=== PATIENT | female | born 1960 | race Caucasian/White ===

== ENCOUNTER 2017-11-15 12:10 | Observation (INO) | payer OTHER ==
[~2017-11-15] VITALS: Ht 165.1 cm; Wt 113.6 kg
--- NOTE | ~2017-11-15 | ST ---
PATIENT:VIVEK URRUTIA MEDICAL RECORD: [id number] SEX: F LOCATION:[facility] D212 ORDER #: ADMISSION DATE: 11/15/17 AGE OF PATIENT: 57 REFERRING PHYSICIAN: INTERPRETING PHYSICIAN: OLIVA MORRIS MD DATE OF SERVICE: 11/16/2017 PROCEDURE: Nuclear stress test. PROCEDURE IN DETAIL: The patient was brought into the nuclear stress test room. The patient was placed in supine position in the scanning table. The patient then had a standard dose of Lexiscan administered. The patient's hemodynamic status was normal before, during, and after. She did have a slight heart rate increase as predicted. She had mild sensation of fullness, but no distinct chest discomfort. She had no ST or T-wave changes consistent with ischemia and the procedure was terminated with completion. The patient's nuclear medication was administered at rest and at stress. At rest, 11.9 mCi of sestamibi was injected at 1245 hours and at stress 32.1 mCi of sestamibi was injected at 1358 hours. The Gated imaging showed good quality imaging with an ejection fraction of 78%. The SPECT imaging showed no evidence of ischemia or infarction. In conclusion, the patient underwent a standard Lexiscan nuclear stress test, showed no evidence of infarction or ischemia. It is a normal stress test with normal ejection fraction. TRANSINT:[id number] Voice Confirmation ID: [id number] DOCUMENT ID: [id number] 11/20/2017 Edited to correct date of service, dmm. OLIVA MORRIS MD at 1426 CC: [id number] DICTATION DATE: 11/17/17 0707 FRAME AND SCRAP CRUSHER: 11/17/17 1152 DIS IN 11/17/17 [address] [place] [address]
--- NOTE | ~2017-11-15 | EC ---
PATIENT:VIVEK URRUTIA DATE OF SERVICE: 11/15/17 SEX: F MEDICAL RECORD: [id number] DATE OF : 62 LOCATION:D.M2 D.212 AGE OF PATIENT: 57 ADMISSION DATE: 11/15/17 REFERRING PHYSICIAN: INTERPRETING PHYSICIAN: OLIVA MORRIS MD ECHOCARDIOGRAM REPORT ECHO CHARGES 4 ECHO COMPLETE Date: CLINICAL DIAGNOSIS: CP ECHOCARDIOGRAPHIC MEASUREMENTS (adult normal given) AC root (d.<3.7cm) 3.3 cm LV Septum d (<1.2 cm> 1.4 cm Valve Excursion 2.1 cm LV Septum (systole) 2.2 cm Left Atria (s.<4.0cm> 3.5 cm LVPW d(<1.2cm) 1.4 cm RV (d.<2.3cm) 2.6 cm LVPW (sytole) 2.0 cm LV diastole(<5.6CM) 4.4 cm MV E-F(>70mm/sec) cm LV systole 2.1 cm LVOT Diameter 1.8 cm MV exc.(>10mm) cm Est.ejection fraction (50-75%) % DOPPLER: LVIT cm/sec A 81.0 cm/sec E 62.0 cm/sec LA cm/sec RVSP 42.0 mmHg LVOT 121 cm/sec AOP1/2T m/s Asc. Ao 174 cm/sec RVOT 76.0 cm/sec RA cm/sec PA 124 cm/sec AV Gradient Peak 12.1 mmHg AV Mean 6.9 mmHg AV Area 2.0 cm MV Gradient Peak 3.5 mmHg MV Mean 1.4 mmHg MV Area cm COMMENTS: Hadoop Java Developer: Susy ZAMORA [place] Kitchen Designer: 4 Dr. Morris TAPE# PACS Pericardial Effusion N DATE OF SERVICE: 11/16/2017 PROCEDURE: Transthoracic echocardiogram. FINDINGS: 1. Left ventricle shows mild to moderate concentric left ventricular hypertrophy. Overall, ejection fraction is 65%. Inflow characteristics consistent with diastolic dysfunction. 2. The left atrium is normal size, normal function. 3. The aortic valve is normal. ECHOCARDIOGRAM REPORT [id number] VIVEK URRUTIA 4. The mitral valve is normal. 5. The tricuspid valve has trace tricuspid regurgitation. RVSP is between 35 and 40 mmHg, mildly elevated. 6. The pericardium is normal. 7. The pulmonic valve is normal. 8. The right atrium is normal. 9. The right ventricle is normal. CONCLUSIONS: The patient has evidence of mild hypertensive heart disease, otherwise normal. TRANSINT:[id number] Voice Confirmation ID: [id number] DOCUMENT ID: [id number] 11/20/2017 Edited to correct date of service, dmm. OLIVA MORRIS MD at 1426 CC: [id number] DICTATION DATE: 11/17/17 0715 CEMENT GRINDING MILL OPERATOR: 11/17/17 1039 DIS IN 11/17/17 [facility] [address] [place] [address]
[2017-11-15 12:48] LABS: BASOPHILS 0.6 % (0-2); EOSINOPHILS 1.2 % (0-7); HEMATOCRIT 45.6 % (36.0-48.0); HEMOGLOBIN 15.4 g/dL (12-16); IMMATURE GRANULOCYTES 0.3 % (0-5); LYMPHOCYTES 12.8 % (15-50); MCH 34.2 pg (26.0-34.0); MCHC 33.8 g/dL (31.0-37.0); MCV 101.3 fL (80.0-100.0); MEAN PLATELET VOLUME 10.2 fL (7.4-10.4); MONOCYTES 4.7 % (2-11); NEUTROPHILS 80.4 % (40-80); PLATELET COUNT 267 10x3/uL (130-400); RDW 12.7 % (11.5-14.5); WBC 10.8 10x3/uL (4.8-10.8)
[2017-11-15 13:01] LABS: ALKALINE PHOSPHATASE 108 U/L (46-116); ALT (SGPT) 158 U/L (10-68); BILIRUBIN - TOTAL 1.49 mg/dL (0.2-1.3); CALC OSMOLALITY 272 mosm/kg (275-300); CALCIUM 9.9 mg/dL (8.5-10.1); CARBON DIOXIDE 23.6 mmol/L (21.0-32.0); CHLORIDE - SERUM 98 mmol/L (98-107); CREATININE - SERUM 1.8 mg/dL (0.6-1.3); GLUCOSE 110 mg/dL (74-106); POTASSIUM - SERUM 3.7 mmol/L (3.5-5.1); PROTEIN - SERUM 8.3 g/dL (6.4-8.2); SODIUM 134 mmol/L (136-145); UREA NITROGEN 24 mg/dL (7-18); eGFR NON AFRICAN AMERICAN 31 mL/min (90-120)
[2017-11-15 13:08] LABS: CREATINE KINASE 75 UL (21-215); TROPONIN-I < 0.017 ng/mL (0.000-0.060)
[2017-11-15 14:20] LABS: LIPASE 199 U/L (73-393); PRO BNP 33 pg/mL (0-125)
[2017-11-15 14:36] LABS: APPEARANCE CLEAR (CLEAR); BILIRUBIN NEGATIVE (NEGATIVE); COLOR YELLOW (YELLOW); GLUCOSE NEGATIVE (NEGATIVE); KETONE NEGATIVE (NEGATIVE); NITRITE NEGATIVE (NEGATIVE); PROTEIN NEGATIVE (NEGATIVE); UROBILINOGEN NORMAL (NORMAL)
[2017-11-15 14:39] LABS: BACTERIA FEW /hpf (NONE SEEN); EPITHELIAL CELLS 0-5 /hpf (0-5); WHITE CELLS - URINE 0-5 /hpf (0-5)
[2017-11-15] MEDS ORDERED: BENICAR HCT 20-1 TA1 PO (21:27)
[2017-11-15 22:33] VITALS: BP 120/68; BMI 41.6
[2017-11-16 00:30] VITALS: BP 119/51
[2017-11-16 04:30] VITALS: BP 115/70; BP 141/71
[2017-11-16 09:21] VITALS: BP 105/61
[2017-11-16 10:59] VITALS: Ht 165.1 cm; Wt 113.6 kg
[2017-11-16 13:50] VITALS: BP 130/87
[2017-11-16 16:59] VITALS: BP 131/84
[2017-11-16 18:42] LABS: BASOPHILS 0.4 % (0-2); EOSINOPHILS 2.9 % (0-7); HEMATOCRIT 39.9 % (36.0-48.0); HEMOGLOBIN 13.4 g/dL (12-16); IMMATURE GRANULOCYTES 0.2 % (0-5); LYMPHOCYTES 39.5 % (15-50); MCHC 33.6 g/dL (31.0-37.0); MCV 101.3 fL (80.0-100.0); MEAN PLATELET VOLUME 10.9 fL (7.4-10.4); MONOCYTES 13.8 % (2-11); NEUTROPHILS 43.2 % (40-80); PLATELET COUNT 247 10x3/uL (130-400); RBC 3.94 10x6/uL (4.00-5.40); RDW 12.9 % (11.5-14.5); WBC 8.4 10x3/uL (4.8-10.8)
[2017-11-16 18:55] LABS: ALBUMIN 3.2 g/dL (3.4-5.0); ANION GAP 13.5 mmol/L (8-16); BILIRUBIN - TOTAL 0.64 mg/dL (0.2-1.3); CALCIUM 8.9 mg/dL (8.5-10.1); CARBON DIOXIDE 26.5 mmol/L (21.0-32.0); PROTEIN - SERUM 7.1 g/dL (6.4-8.2)
[2017-11-16 18:56] LABS: CREATININE - SERUM 1.1 mg/dL (0.6-1.3)
[2017-11-16 20:30] VITALS: BP 141/79
[2017-11-17 00:30] VITALS: BP 150/79
[2017-11-17 04:30] VITALS: BP 149/91
[2017-11-17 04:33] LABS: BASOPHILS 0.5 % (0-2); EOSINOPHILS 3.3 % (0-7); HEMATOCRIT 40.4 % (36.0-48.0); HEMOGLOBIN 13.4 g/dL (12-16); IMMATURE GRANULOCYTES 0.3 % (0-5); LYMPHOCYTES 45.1 % (15-50); MCH 33.7 pg (26.0-34.0); MCHC 33.2 g/dL (31.0-37.0); MCV 101.5 fL (80.0-100.0); MEAN PLATELET VOLUME 10.9 fL (7.4-10.4); MONOCYTES 13.8 % (2-11); PLATELET COUNT 254 10x3/uL (130-400); RBC 3.98 10x6/uL (4.00-5.40); RDW 12.8 % (11.5-14.5); WBC 10.3 10x3/uL (4.8-10.8)
[2017-11-17 05:06] LABS: ALBUMIN 3.3 g/dL (3.4-5.0); ANION GAP 15.1 mmol/L (8-16); BILIRUBIN - TOTAL 0.41 mg/dL (0.2-1.3); CALCIUM 8.8 mg/dL (8.5-10.1); CARBON DIOXIDE 24.7 mmol/L (21.0-32.0); POTASSIUM - SERUM 3.8 mmol/L (3.5-5.1); PROTEIN - SERUM 7.1 g/dL (6.4-8.2)
[2017-11-17 08:34] VITALS: BP 142/74
[2017-11-17 11:39] VITALS: BP 130/85
== END 2017-11-17 13:37 | disposition home or self-care (01) ==
LOC: D.ER 12:10 → D.EDHOLD 18:36 → D.M2 18:36 → OBSVTIME 18:37 → D.M2 20:23
PROVIDERS: Family Medicine; Family Medicine Adult Medicine
DX: R55 Syncope and collapse (principal); I10 Essential (primary) hypertension; R07.9 Chest pain, unspecified; R74.8 Abnormal levels of other serum enzymes; E66.9 Obesity, unspecified

== ENCOUNTER 2019-02-25 22:52 | Emergency (ER) | payer OTHER ==
[~2019-02-25 22:52] MED LIST: BENICAR HCT 20-1 TA1 PO
[2019-02-25 22:59] VITALS: BMI 40.0
[2019-02-26] MEDS ORDERED: ULTRAM50 MG PO (00:49)
[2019-02-26 01:11] VITALS: BP 140/81
[2019-03-03] MEDS ORDERED: LISINOPRIL10 MG PO (13:20)
[2019-03-03] MEDS ORDERED: DILAUDID4 MG PO (13:21)
== END 2019-02-26 01:13 | disposition home or self-care (01) ==
LOC: D.ER 22:52
DX: S82.141A Displaced bicondylar fracture of right tibia, initial encounter for closed fracture (principal); W19.XXXA Unspecified fall, initial encounter; I10 Essential (primary) hypertension

== ENCOUNTER 2019-03-04 10:44 | Day surgery (SDC) | payer OTHER ==
[~2019-03-04] VITALS: Ht 165.1 cm; Wt 106.8 kg
[2019-03-04] VITALS (10 sets, daily range): BP systolic 128–151; BP diastolic 68–93; Ht 165.1 cm; Wt 106.8 kg
[~2019-03-04 10:44] MED LIST changes: +DILAUDID4 MG PO; +LISINOPRIL10 MG PO; +ULTRAM50 MG PO
[2019-03-04 11:15] LABS: HEMATOCRIT 42.6 % (36.0-48.0); HEMOGLOBIN 14.6 g/dL (12-16); MCH 34.3 pg (26.0-34.0); MCHC 34.3 g/dL (31.0-37.0); MEAN PLATELET VOLUME 9.5 fL (7.4-10.4); RBC 4.26 10x6/uL (4.00-5.40); RDW 13.2 % (11.5-14.5); WBC 10.4 10x3/uL (4.8-10.8)
[2019-03-04] MEDS ORDERED: PRISTIQ100 MG PO (12:25)
--- NOTE | 2019-03-04 20:00 | NUR ---
PT SITTING UP IN BED WITHOUT DISTRESS. ALERT AND ORIENTED. STATES NO PAIN, LEFT LEG STILL NUMB FROM BLOCK. PT HAS TO VOID BUT REFUSES TO USE BEDPAN, WOULD LIKE TO WALK TO BATHROOM. EXPLAINED TO PT IT WOULD NOT BE GOOD IDEA TO GO ALL THE WAY TO BATHROOM RIGHT OUT OF SURGERY ON HER FIRST TIME STANDING UP WITH THE IMMOBILIZER. PT CONTINUED TO REFUSE BEDPAN AND SAID SHE WOULD "HOLD IT." PROVIDED PT WITH BEDSIDE COMMODE. PT AMBULATED WITH MINIMAL ASSIST. PT STILL AGGRAVATED STATING SHE WANTED TO GO IN BATHROOM. ENCOURAGED PT TO GO IN BEDSIDE COMMODE NOW AND NEXT TIME UP WE WOULD TRY THE WALKER TO BATHROOM. IV LEFT WRIST INFUSING 1/2NS @ 50. SCD TO LEFT LEG. DENIES OTHER NEEDS. CL IN REACH, WILL CTM
--- NOTE | 2019-03-04 21:30 | NUR ---
PT AMBULATED TO BATHROOM BY WALKER NON WB ON RIGHT LEG. STANDBY 2 PERSON ASSIST AT THIS TIME. PT AMBULATED WITHOUT DIFFICULTY TO BATHROOM AND BACK TO BED
[2019-03-05 01:37] VITALS: BP 148/97
[2019-03-05 05:37] VITALS: BP 151/84
[2019-03-05] MEDS ORDERED: DILAUDID4 MG PO (06:19)
[2019-03-05] MEDS ORDERED: ELIQUIS2.5 MG PO (06:19)
--- NOTE | 2019-03-05 09:06 | MORECARE ---
CASE MANAGEMENT DISCHARGE SUMMARY PATIENT: VIVEK URRUTIA UNIT: [id number] ADM DATE: 03/04/19 AGE: 58 : 62 SEX: F ROOM/BED: D.2224 AUTHOR: ALIYA NORRIS PHYSICIAN: REFERRING PHYSICIAN: SEFERINO HUBER MD DATE OF SERVICE: 03/05/19 Discharge Plan Patient Name: VIVEK URRUTIA Facility: [facility]:[place] : 1960 Planned Disposition: Home Anticipated Discharge Date: 03/05/19 Discharge Date: Expected LOS: 1 Initial Reviewer: [email or web address] Initial Review Date: 03/05/2019 Generated: 03/05/19 10:05 am Patient Name: VIVEK URRUTIA Page [phone] at 0906 All edits/amendments must be made on the electronic document DICTATION DATE: 03/05/19904 RICE CLEANING MACHINE TENDER: MILTON 03/05/19904 RPT#: [id number] DC DATE: STATUS: REG [facility] [address] [place] [address] END OF REPORT
--- NOTE | 2019-03-05 09:13 | MORECARE ---
CASE MANAGEMENT DISCHARGE SUMMARY PATIENT: VIVEK URRUTIA UNIT: [id number] ADM DATE: 03/04/19 AGE: 58 : 62 SEX: F ROOM/BED: D.2224 AUTHOR: MYRNA,DOC PHYSICIAN: REFERRING PHYSICIAN: SEFERINO HUBER MD DATE OF SERVICE: 03/05/19 Discharge Plan Patient Name: VIVEK URRUTIA Facility: [facility]:[place] : 1960 Planned Disposition: Home Anticipated Discharge Date: 03/05/19 Discharge Date: Expected LOS: 1 Initial Reviewer: [email or web address] Initial Review Date: 03/05/2019 Generated: 03/05/19 10:13 am Comments DCP- Discharge Planning Updated by [email or web address]: Stephanie Mcclure on 03/05/19 8:[address] Patient Name: VIVEK URRUTIA Admission Status: Elective Accout number: [id number] Admission Date: 03-04-2019 : 1960 Admission Diagnosis: Attending: SEFERINO HUBER Current LOS: 1 Anticipated DC Date: 03-05-2019 Planned Disposition: Home Primary Insurance: [facility] Discharge Planning Comments: CM met with patient to complete initial dc planning assessment. CM educated patient on the CM role and verbal consent given by patient to complete assessment. Patient lives at home with her . At discharge patient plans to return and feels this is a safe discharge. Discharge orders received, I informed her she will need either crutches or a walker for no weight bearing on operative side, she states she would like crutches. I ordered PT for crutch training. JONES for [facility] signed. I called [facility] and order faxed. CM will continue to follow and will assist as needed with dc plans/needs. Tape Librarian: Stephanie Mcclure DCPIA - Discharge Planning Initial Assessment Updated by [email or web address]: Stephanie Mcclure on 03/05/19 9:08 am * Is the patient Alert and Oriented? Yes * How many steps to enter\exit or inside your home? Ramp/0 * PCP Dr. Nunez * [facility] * Preadmission Environment Home with Family * ADLs Independent * Equipment None * List name and contact numbers for known caregivers / representatives who currently or will assist patient after discharge: Emersno Urrutia - [facility] - [phone] * Verbal permission to speak to the caregivers and representatives has been obtained from the patient. Yes * Community resources currently utilized None * Additional services required to return to the preadmission environment? Yes * Can the patient safely return to the preadmission environment? Yes * Has this patient been hospitalized within the prior 30 days at any hospital? No External Providers External Provider: [facility] Next Contact Date: Service Request Date: Service Type: Resolution: Reviewer: Comments: Coverage Notice Reviewer: [id number] - Stephanie Mcclure Notice Issued Date-Time: 03/05/2019 9:12 Notice Type: Patient Choice Letter Notice Delivered To: Patient Relationship to Patient: Self Lime Filter Operator Name: Delivery Method: HAND - Hand Delivered Marsha Days: Prior Verbal Notification: Recipient Understood Notice: Yes Recipient Signature: Yes Med Rec Note Co-signed by Attending: Coverage Notice Comment: JONES for [facility] first Martha second Last DP export: 03/05/19 8:06 a Patient Name: VIVEK URRUTIA Page [phone] at 0913 All edits/amendments must be made on the electronic document DICTATION DATE: 03/05/19912 STEAM TABLE ASSOCIATE: MILTON 03/05/19912 RPT#: [id number] DC DATE: STATUS: [facility] [address] [place] [address] END OF REPORT
[2019-03-05 09:51] VITALS: BP 134/89
--- NOTE | 2019-03-05 10:11 | MORECARE ---
CASE MANAGEMENT DISCHARGE SUMMARY PATIENT: VIVEK URRUTIA UNIT: [id number] ADM DATE: 03/04/19 AGE: 58 : 62 SEX: F ROOM/BED: D.2224 AUTHOR: MYRNA,DOC PHYSICIAN: REFERRING PHYSICIAN: SEFERINO HUBER MD DATE OF SERVICE: 03/05/19 Discharge Plan Patient Name: VIVEK URRUTIA Facility: [facility]:[place] : 1960 Planned Disposition: Home Anticipated Discharge Date: 03/05/19 Discharge Date: Expected LOS: 1 Initial Reviewer: [email or web address] Initial Review Date: 03/05/2019 Generated: 03/05/19 11:10 am Comments DCP- Discharge Planning Updated by [email or web address]: Stephanie Mcclure on 03/05/19 9:[address] [email or web address] is out of network/I called [facility]. They are unable to deliver cruches, but I will need a signed DWO prior to filling Rx. They are sending faxing form. DCP- Discharge Planning Updated by [email or web address]: Stephanie Mcclure on 03/05/19 8:[address] Patient Name: VIVEK URRUTIA Admission Status: Elective Accout number: [id number] Admission Date: 03-04-2019 : 1960 Admission Diagnosis: Attending: SEFERINO HUBER Current LOS: 1 Anticipated DC Date: 03-05-2019 Planned Disposition: Home Primary Insurance: [facility] Discharge Planning Comments: CM met with patient to complete initial dc planning assessment. CM educated patient on the CM role and verbal consent given by patient to complete assessment. Patient lives at home with her . At discharge patient plans to return and feels this is a safe discharge. Discharge orders received, I informed her she will need either crutches or a walker for no weight bearing on operative side, she states she would like crutches. I ordered PT for crutch training. JONES for [email or web address] signed. [facility]. CM will continue to follow and will assist as needed with dc plans/needs. Hand Etcher Helper: Stephanie Mcclure DCPIA - Discharge Planning Initial Assessment Updated by [email or web address]: Stephanie Mcclure on 03/05/19 9:08 am * Is the patient Alert and Oriented? Yes * How many steps to enter\exit or inside your home? Ramp/0 * PCP Dr. Nunez * [facility] * Preadmission Environment Home with Family * ADLs Independent * Equipment None * List name and contact numbers for known caregivers / representatives who currently or will assist patient after discharge: Emerson Urrutia - [facility] - [phone] * Verbal permission to speak to the caregivers and representatives has been obtained from the patient. Yes * Community resources currently utilized None * Additional services required to return to the preadmission environment? Yes * Can the patient safely return to the preadmission environment? Yes * Has this patient been hospitalized within the prior 30 days at any hospital? No Coverage Notice Reviewer: [id number] - Stephanie Ren Notice Issued Date-Time: 03/05/2019 9:12 Notice Type: Patient Choice Letter Notice Delivered To: Patient Relationship to Patient: Self Stock Room Manager Name: Delivery Method: HAND - Hand Delivered Marsha Days: Prior Verbal Notification: Recipient Understood Notice: Yes Recipient Signature: Yes Med Rec Note Co-signed by Attending: Coverage Notice Comment: JON[facility] for [facility] first Martha second Last DP export: 03/05/19 8:13 a Patient Name: VIVEK URRUTIA Page 60885 at 1011 All edits/amendments must be made on the electronic document DICTATION DATE: 03/05/19 1010 LOCAL TRUCK DRIVER: MILTON 03/05/19 1010 RPT#: [id number] DC DATE: STATUS: REG [facility] [address] [place] [address] END OF REPORT
--- NOTE | 2019-03-05 10:18 | MORECARE ---
CASE MANAGEMENT DISCHARGE SUMMARY PATIENT: VIVEK URRUTIA UNIT: [id number] ADM DATE: 03/04/19 AGE: 58 : 62 SEX: F ROOM/BED: D.2224 AUTHOR: MYRNA,DOC PHYSICIAN: REFERRING PHYSICIAN: SEFERINO HUBER MD DATE OF SERVICE: 03/05/19 Discharge Plan Patient Name: VIVEK URRUTIA Facility: [facility]:[place] : 1960 Planned Disposition: Home Anticipated Discharge Date: 03/05/19 Discharge Date: Expected LOS: 1 Initial Reviewer: [email or web address] Initial Review Date: 03/05/2019 Generated: 03/05/19 11:18 am Comments DCP- Discharge Planning Updated by [email or web address]: Stephanie Mcclure on 03/05/19 9:[address] [facility] is out of network/I called [facility]. They are unable to deliver cruches, but I will need a signed DWO prior to filling Rx. They are sending faxing form. DCP- Discharge Planning Updated by [email or web address]: Stephanie Mcclure on 03/05/19 8:[address] Patient Name: VIVEK URRUTIA Admission Status: Elective Accout number: [id number] Admission Date: 03-04-2019 : 1960 Admission Diagnosis: Attending: SEFERINO HUBER Current LOS: 1 Anticipated DC Date: 03-05-2019 Planned Disposition: Home Primary Insurance: [facility] Discharge Planning Comments: CM met with patient to complete initial dc planning assessment. CM educated patient on the CM role and verbal consent given by patient to complete assessment. Patient lives at home with her . At discharge patient plans to return and feels this is a safe discharge. Discharge orders received, I informed her she will need either crutches or a walker for no weight bearing on operative side, she states she would like crutches. I ordered PT for crutch training. JONES for [employer] signed. [facility]. CM will continue to follow and will assist as needed with dc plans/needs. Strap Cutting Machine Operator: Stephanie Mcclure DCPIA - Discharge Planning Initial Assessment Updated by [email or web address]: Stephanie Mcclure on 03/05/19 9:08 am * Is the patient Alert and Oriented? Yes * How many steps to enter\exit or inside your home? Ramp/0 * PCP Dr. Nunez * [facility] * Preadmission Environment Home with Family * ADLs Independent * Equipment None * List name and contact numbers for known caregivers / representatives who currently or will assist patient after discharge: Emerson Urrutia - [facility] - [phone] * Verbal permission to speak to the caregivers and representatives has been obtained from the patient. Yes * Community resources currently utilized None * Additional services required to return to the preadmission environment? Yes * Can the patient safely return to the preadmission environment? Yes * Has this patient been hospitalized within the prior 30 days at any hospital? No Coverage Notice Reviewer: [id number] - Stephanie Ren Notice Issued Date-Time: 03/05/2019 9:12 Notice Type: Patient Choice Letter Notice Delivered To: Patient Relationship to Patient: Self Field Consultant Name: Delivery Method: HAND - Hand Delivered Marsha Days: Prior Verbal Notification: Recipient Understood Notice: Yes Recipient Signature: Yes Med Rec Note Co-signed by Attending: Coverage Notice Comment: JONES for [facility] first Martha second Last DP export: 03/05/19 8:13 a Patient Name: VIVEK URRUTIA Page 21496 at 1018 All edits/amendments must be made on the electronic document DICTATION DATE: 03/05/19 1018 SOCIAL WORKER: MILTON 03/05/19 1018 RPT#: [id number] DC DATE: STATUS: REG [facility] [address] [place] [address] END OF REPORT
--- NOTE | 2019-03-05 11:12 | MORECARE ---
CASE MANAGEMENT DISCHARGE SUMMARY PATIENT: VIVEK URRUTIA UNIT: [id number] ADM DATE: 03/04/19 AGE: 58 : 62 SEX: F ROOM/BED: D.2224 AUTHOR: MYRNA,DOC PHYSICIAN: REFERRING PHYSICIAN: SEFERINO HUBER MD DATE OF SERVICE: 03/05/19 Discharge Plan Patient Name: VIVEK URRUTIA Facility: [facility]:[place] : 1960 Planned Disposition: Home Anticipated Discharge Date: 03/05/19 Discharge Date: Expected LOS: 1 Initial Reviewer: [email or web address] Initial Review Date: 03/05/2019 Generated: 03/05/19 12:12 pm Comments DCP- Discharge Planning Updated by [email or web address]: Stephanie Mcclure on 03/05/19 9:[address] [facility] is out of network/I called [facility]. They are unable to deliver cruches, but I will need a signed DWO prior to filling Rx. They are sending faxing form. DCP- Discharge Planning Updated by [email or web address]: Stephanie Mcclure on 03/05/19 8:[address] Patient Name: VIVEK URRUTIA Admission Status: Elective Accout number: [id number] Admission Date: 03-04-2019 : 1960 Admission Diagnosis: Attending: SEFERINO HUBER Current LOS: 1 Anticipated DC Date: 03-05-2019 Planned Disposition: Home Primary Insurance: [facility] Discharge Planning Comments: CM met with patient to complete initial dc planning assessment. CM educated patient on the CM role and verbal consent given by patient to complete assessment. Patient lives at home with her . At discharge patient plans to return and feels this is a safe discharge. Discharge orders received, I informed her she will need either crutches or a walker for no weight bearing on operative side, she states she would like crutches. I ordered PT for crutch training. JONES for [employer] signed. [facility]. CM will continue to follow and will assist as needed with dc plans/needs. Licensed Marine Engineer: Stephanie Mcclure DCPIA - Discharge Planning Initial Assessment Updated by [email or web address]: Stephanie Mcclure on 03/05/19 9:08 am * Is the patient Alert and Oriented? Yes * How many steps to enter\exit or inside your home? Ramp/0 * PCP Dr. Nunez * [facility] * Preadmission Environment Home with Family * ADLs Independent * Equipment None * List name and contact numbers for known caregivers / representatives who currently or will assist patient after discharge: Emerson Urrutia - [facility] - [phone] * Verbal permission to speak to the caregivers and representatives has been obtained from the patient. Yes * Community resources currently utilized None * Additional services required to return to the preadmission environment? Yes * Can the patient safely return to the preadmission environment? Yes * Has this patient been hospitalized within the prior 30 days at any hospital? No External Providers External Provider: [facility] Contact Date: Service Request Date: Service Type: Resolution: Reviewer: Comments: Coverage Notice Reviewer: [id number] - Stephanie Ren Notice Issued Date-Time: 03/05/2019 9:12 Notice Type: Patient Choice Letter Notice Delivered To: Patient Relationship to Patient: Self Glove Boarder Name: Delivery Method: HAND - Hand Delivered Marsha Days: Prior Verbal Notification: Recipient Understood Notice: Yes Recipient Signature: Yes Med Rec Note Co-signed by Attending: Coverage Notice Comment: JONES for [facility] first Thomas second Last DP export: 03/05/19 9:18 a Patient Name: VIVEK URRUTIA Page 56457 at 1112 All edits/amendments must be made on the electronic document DICTATION DATE: 03/05/19 111 LEARNING PROGRAM MANAGER: MILTON 03/05/19 1112 RPT#: [id number] DC DATE: STATUS: REG [facility] [address] [place] [address] END OF REPORT
--- NOTE | 2019-03-05 11:19 | NUR ---
IV THERAPY DC'ED WITH TIP INTACT. DISCHARGE INSTRUCTIONS GIVEN. PATIENT AND VERBALIZED UNDERSTANDING. WHEELED DOWNSTAIRS.
--- NOTE | 2019-03-05 11:44 | MORECARE ---
CASE MANAGEMENT DISCHARGE SUMMARY PATIENT: VIVEK URRUTIA UNIT: [id number] ADM DATE: 03/04/19 AGE: 58 : 62 SEX: F ROOM/BED: AUTHOR: MYRNA,DOC PHYSICIAN: REFERRING PHYSICIAN: SEFERINO HUBER MD DATE OF SERVICE: 03/05/19 Discharge Plan Patient Name: VIVEK URRUTIA Facility: [facility]:[place] : 1960 Planned Disposition: Home Anticipated Discharge Date: 03/05/19 Discharge Date: 03/05/2019 Expected LOS: 1 Initial Reviewer: [id number] Initial Review Date: 03/05/2019 Generated: 03/05/19 12:44 pm Comments DCP- Discharge Planning Updated by [email or web address]: Stephanie Mcclure on 03/05/19 10:[address] Patient states she has a walker at home that she will use until her crutches are available. She states they will pick the crutches up. States she is ready to go home, her is in the room. He states he will go by [facility] and picker tender helper the crutches. I informed him that I would need Dr. Huber to sign the Rx for the crutches. DCP- Discharge Planning Updated by [email or web address]: Stephanie Mcclure on 03/05/19 9:[address] Editorially is out of network/I called [facility]. They are unable to deliver cruches, but I will need a signed DWO prior to filling Rx. They are sending faxing form. DCP- Discharge Planning Updated by [email or web address]: Stephanie Mcclure on 03/05/19 8:[address] Patient Name: VIVEK URRUTIA Admission Status: Elective Accout number: [id number] Admission Date: 03-04-2019 : 1960 Admission Diagnosis: Attending: SEFERINO HUBER Current LOS: 1 Anticipated DC Date: 03-05-2019 Planned Disposition: Home Primary Insurance: [facility] Discharge Planning Comments: CM met with patient to complete initial dc planning assessment. CM educated patient on the CM role and verbal consent given by patient to complete assessment. Patient lives at home with her . At discharge patient plans to return and feels this is a safe discharge. Discharge orders received, I informed her she will need either crutches or a walker for no weight bearing on operative side, she states she would like crutches. I ordered PT for crutch training. JONES for [employer] Garvin signed. I called [facility] and order faxed. CM will continue to follow and will assist as needed with dc plans/needs. Scrub Wheel Operator: Stephanie Mcclure DCPIA - Discharge Planning Initial Assessment Updated by [email or web address]: Stephanie Mcclure on 03/05/19 9:08 am * Is the patient Alert and Oriented? Yes * How many steps to enter\exit or inside your home? Ramp/0 * PCP Dr. Nunez * Pharm[facility] * Preadmission Environment Home with Family * ADLs Independent * Equipment None * List name and contact numbers for known caregivers / representatives who currently or will assist patient after discharge: Emerson Urrutia - - [phone] * Verbal permission to speak to the caregivers and representatives has been obtained from the patient. Yes * Community resources currently utilized None * Additional services required to return to the preadmission environment? Yes * Can the patient safely return to the preadmission environment? Yes * Has this patient been hospitalized within the prior 30 days at any hospital? No Coverage Notice Reviewer: [id number] - Stephanie Mcclure Notice Issued Date-Time: 03/05/2019 9:12 Notice Type: Patient Choice Letter Notice Delivered To: Patient Relationship to Patient: Self Cryptographic Machine Operator Name: Delivery Method: HAND - Hand Delivered Marsha Days: Prior Verbal Notification: Recipient Understood Notice: Yes Recipient Signature: Yes Med Rec Note Co-signed by Attending: Coverage Notice Comment: JONES for Lopez Garvin first Martha second Last DP export: 03/05/19 10:12 a Patient Name: VIVEK URRUTIA Page [id number] at 1144 All edits/amendments must be made on the electronic document DICTATION DATE: 03/05/191142 UNDERWRITING DIRECTOR: MILTON 03/05/19 114 RPT#: [id number] DC DATE:03/05/19 STATUS: [facility] [address] [place] [address] END OF REPORT
--- NOTE | 2019-03-11 15:15 | OP ---
PATIENT NAME: VIVEK URRUTIA MEDICAL RECORD: [id number] :[birth year] LOCATION:[facility] ADMISSION DATE: SURGEON: SEFERINO HUBER MD DATE OF OPERATION: 03/04/2019 PREOPERATIVE DIAGNOSIS: Displaced medial tibial plateau fracture. POSTOPERATIVE DIAGNOSIS: Displaced medial tibial plateau fracture. PROCEDURE: Open reduction and internal fixation of displaced medial tibial plateau fracture. CALL CENTER CONSULTANT: COTY Miller INTRAOPERATIVE COMPLICATIONS: None. SUMMARY OF PATHOLOGIC FINDINGS: I did feel like the medial tibial plateau mobilized nicely and reduced anatomically under fluoroscopic guidance. OPERATIVE SUMMARY IN DETAIL: After obtaining the appropriate preoperative orthopedic surgery consent as well as anesthetic consultation, evaluation, and clearance, the patient was brought to the operating room and placed on the operating table in the supine position. After general laryngeal mask airway was administered, tourniquet was placed about the proximal aspect of the right lower extremity. The right lower extremity was then prepped and draped in routine sterile fashion. After the appropriate time-out had been taken with the appropriate patient identifiers and agreed upon by all, leg was elevated and exsanguinated. Tourniquet was inflated to 350 mmHg. A curvilinear incision was made over the medial tibial plateau and taken down to the level of periosteum. Gentle dissection was carried out as to retain the periosteum as much as possible. The medial fragment mobilized nicely as seen on fluoroscopy. An AxSOS 3 proximal medial tibial baseplate was utilized first under compression and then locking for good fixation. This was seen and evaluated on both AP and lateral views of the fluoroscopy. Having completed this, final radiographs were taken and submitted for radiologist's review. Wound was copiously irrigated and closed by Antonio Rivas with #1 Vicryl, 2-0 Vicryl, and skin kindra. Sterile dressings were applied. Knee immobilizer was applied after the tourniquet was deflated. The patient was awakened and taken to the recovery room in stable condition. All final needle and sponge counts were correct. TRANSINT:[id number] Voice Confirmation ID: [id number] DOCUMENT ID: [id number] SEFERINO HUBER MD at 1515 CC: [id number] DICTATION DATE: 03/11/19 1201 CARPET CLEANER: 03/11/19 1314 [facility] 03/05/19 [facility] [address] [place] [address]
== END 2019-03-05 11:29 | disposition home or self-care (01) ==
LOC: D.MS 10:44 → D.OPS 10:44 → D.PAN 12:55 → D.OPS 14:15 → D.MS 15:47 → D.OPS 03-05 11:29
PROVIDERS: Anesthesiology; ATTEND Orthopaedic Surgery
DX: S82.141A Displaced bicondylar fracture of right tibia, initial encounter for closed fracture (principal); X58.XXXA Exposure to other specified factors, initial encounter; Z01.812 Encounter for preprocedural laboratory examination